=== PATIENT | female | born 1970 | race Caucasian/White ===

== ENCOUNTER → 2017-04-08 | Outpatient (CLI) | payer BC ==
--- NOTE | ~2017-04-08 | EE ---
Unit #: [id number] #: [id number] Patient: BARBARA VO [id number] [address] [place], [place] [address] [id number] O MR#: [id number] NAME: BARBARA VO : 1970 SEX: F STUDY DATE/TIME: 04/09/2017 UNIT: CEEG ROOM: STUDY DESCRIPTION: EEG Attending Physician: Breanna Matias M.D. Referring Physician: Breanna aMtias M.D. Primary Care Physician: Nahum Vazquez M.D. NEURODIAGNOSTICS REPORT EXAM EEG REASON FOR STUDY Seizures. Mettl TECHNICAL INFORMATION Routine EEG performed using the standard International 10-20 system electrode placement. Photic stimulation was performed. Hyperventilation was also performed. REPORT Throughout the entire study the best background rhythm seen is approximately 11-12 hertz. This reason is seen in both posterior head regions symmetrically and does attenuate to eye opening and closure. Hyperventilation was performed, which did not appear to evoke any abnormal buildup. Photic stimulation was also performed, which failed to reproduce any epileptiform abnormalities; however, decent photic driving response was seen. Patient does achieve some brief drowsiness during the EEG. However, no sleep was recorded. Throughout the entire study there were no electrographic seizures recorded nor were there any discreet epileptiform abnormality seen. INTERPRETATIONS Normal awake EEG and normal EEG does not rule out the possibility of seizure disorder. Clinical correlation is advised. Dictated by... Evangelista Cuenca II., M.D. GWS/luisana TD: 04/09/2017 13:18 JOB #: [id number] Unit #: [id number] #: [id number] Patient: BARBARA VO NEURODIAGNOSTICS REPORT Page 1 of 1 X NEURODIAGNOSTICS REPORT
--- NOTE | ~2017-04-08 | MR133 ---
[facility] A Service of [facility] RADIOLOGY TEXT RESULTS PATIENT: BARBARA VO LOCATION: CEEG : 70 UNIT #: [id number] AGE: [address]: BREANNA WOOD MD SEX: F ORDER DR: [id number] [facility] [address] [place], [place] [address] [id number] O MR#: [id number] Acc #: [id number] NAME: BARBARA VO : 1970 SEX: F STUDY DATE/TIME: 04/08/2017 10:38 UNIT: CEEG ROOM: STUDY DESCRIPTION: MR MRA Neck WWo Contrast Attending Physician: Breanna Wood M.D. Referring Physician: Breanna Wood M.D. Ordering Physician: Breanna Wood M.D. Primary Care Physician: Nahum Vazquez M.D. MRI CENTER REPORT This report is preliminary unless electronic signature is present. EXAM MR angiogram neck vessels with and without. HISTORY New onset seizure disorder. Epilepsy abnormal brain MRI with evidence of small and large vessel disease. COMMENT MR angiography performed of neck vessels prior to and during the intravenous administration of 18 mL of MultiHance. COMPARISON There is no prior imaging of the neck vessels. FINDINGS The patient has partially bovine origin of the left common carotid artery. There is no hemodynamically significant stenosis suspected at great vessel origins from the arch. The left vertebral artery is mildly dominant, and patent throughout the neck. The right vertebral artery is smaller, but also patent throughout the neck. By NASCET criteria, there is essentially 0% stenosis suspected at either carotid bifurcation. IMPRESSION 1. Essentially normal MR angiography neck vessels. By NASCET criteria, essentially 0% stenosis of either carotid bifurcation, and both vertebral arteries are patent. Dictated by... Rosa Peters M.D. THIS IS AN ELECTRONICALLY VERIFIED REPORT [facility] A Service of [facility] [place] RADIOLOGY TEXT RESULTS PATIENT: BARBARA VO LOCATION: CEEG : 70 UNIT #: [id number] AGE: [address]: BREANNA WOOD MD SEX: F ORDER DR: Rosa Peters M.D. at 04/10/2017 8:02 PM ART/anabel TD: 04/09/2017 18:50 JOB #: [id number] MRI CENTER REPORT Page 1 of 1 COPY
--- NOTE | ~2017-04-08 | MR17 ---
[facility] A Service of [facility] RADIOLOGY TEXT RESULTS PATIENT: BARBARA VO LOCATION: CEEG : 70 UNIT #: [id number] AGE: [address]: BREANNA WOOD MD SEX: F ORDER DR: [id number] [facility] [address] [place], [place] [address] [id number] O MR#: [id number] Acc #: [id number] NAME: BARBARA VO : 1970 SEX: F STUDY DATE/TIME: 04/08/2017 9:40 UNIT: CEEG ROOM: STUDY DESCRIPTION: MR Brain WWo Contrast Attending Physician: Breanna Wood M.D. Referring Physician: Breanna Wood M.D. Ordering Physician: Breanna Wood M.D. Primary Care Physician: Nahum Vazquez M.D. MRI CENTER REPORT This report is preliminary unless electronic signature is present. EXAM MRI of the brain with and without. HISTORY Epilepsy, first ever seizure 3 weeks ago with continuing headaches and some anteromedial left arm pain. No history of cancer. COMMENT MRI of the brain was performed prior to and following intravenous administration of 18 mL of MultiHance. There is no comparison study of the brain. There are separate MR angiogram dictations. 1.5T system utilized with a seizure protocol. There is no evidence for a recent ischemic insult on the diffusion series. There is no MRI evidence for a recent intracranial hemorrhage. There is encephalomalacia in the medial inferior left occipital lobe with an area of involvement about 3 cm x 1.7 cm axial plane and there is also encephalomalacia left parietal lobe posterolaterally, wedge-shaped about 3 x 2.5 cm. These are consistent with remote insults. Distribution would suggest prior thromboembolic disease to the posterior circulation. There are additionally smaller areas of white matter signal abnormality in the subcortical and deep white matter to a lesser extent the periventricular white matter bilaterally. There is a small focus of encephalomalacia in particular in the left posterior frontal centrum semiovale. Small chronic lacune in the medial right basal ganglia measuring about 1.1 x 0.6 cm in dimension. There is no evidence for mesial temporal sclerosis. Nothing to suggest kinney matter heterotopia. Following contrast administration, there is no pathologic intracranial enhancement. There is no intracranial mass lesion or mass effect. The appearance of the brain is abnormal, particularly for a 46-year-old female. The multiple areas of malacic change are most concerning for [facility] Service of [facility] RADIOLOGY TEXT RESULTS PATIENT: BARBARA VO LOCATION: CEEG : 70 UNIT #: [id number] AGE: [address]: BREANNA WOOD MD SEX: F ORDER DR: prior ischemic insults, both due to thromboembolic disease and small vessel disease. The left cerebral hemispheric lesions could be in part due to borderzone type ischemia. See the upcoming MR angiogram dictations and please correlate for risk factors for thromboembolic disease. Please correlate as well for any history of vasculitis or severe complicated migraine. At this time, the major arterial intracranial flow voids are maintained. The patient has a small amount of fluid or inflammatory change in the mastoid air cells, especially on the right. Please correlate for any history of substance abuse. IMPRESSION 1. No evidence for a recent ischemic insult. 2. Abnormal examination, particularly in 46-year-old female. There are multiple areas of encephalomalacia as well as areas of white matter signal abnormality and lacunar disease. Please correlate for clinical evidence of risk factors for thromboembolic disease or advanced small vessel disease. Please correlate for any history of severe complicated migraine or evidence for vasculitis or substance abuse. One of these areas of encephalomalacia could be a seizure focus in this patient. See the subsequent MR angiogram dictations. Further evaluation of this patient is recommended given the advanced disease in age group. STAT * RESULT Dictated by... Rosa Peters M.D. THIS IS AN ELECTRONICALLY VERIFIED REPORT Rosa Peters M.D. at 04/09/2017 5:47 PM ART/yanci TD: 04/09/2017 14:22 JOB #: [id number] MRI CENTER REPORT Page 1 of 1 COPY
--- NOTE | ~2017-04-08 | MR122 ---
[facility] A Service of [facility] RADIOLOGY TEXT RESULTS PATIENT: BARBARA VO LOCATION: CEEG : [birth year] UNIT #: [id number] AGE: [address]: BREANNA WOOD MD SEX: F ORDER DR: [id number] [facility] [address] [place], [place] [address] [id number] O MR#: [id number] Acc #: [id number] NAME: BARBARA VO : 1970 SEX: F STUDY DATE/TIME: 04/08/2017 10:29 UNIT: CEEG ROOM: STUDY DESCRIPTION: MR MRA Head Wo Contrast Attending Physician: Breanna Wood M.D. Referring Physician: Breanna Wood M.D. Ordering Physician: Breanna Wood M.D. Primary Care Physician: Nahum aVzquez M.D. MRI CENTER REPORT This report is preliminary unless electronic signature is present. EXAM MR angiogram head without HISTORY New onset epilepsy. Abnormal brain MRI with areas of malacia concerning for prior large and small vessel ischemic insults. COMMENT There is no intracranial vascular cutoff. There may be subtle caliber change in the ZOYA distribution but this could simply be artifactual. If there is concern for vasculitis, this diagnosis is best pursued with a conventional angiogram. No focal high-grade central stenosis is seen. There is asymmetrically diminished flow to the distal left posterior cerebral artery distribution consistent with the encephalomalacic area seen on the earlier brain MRI. No additional intracranial vascular cutoff is suspected. No aneurysm is suspected on the basis of MR angiography. No anterior communicating artery is seen. No significant posterior communicator is seen. IMPRESSION 1. There may be caliber change in the ZOYA vessels bilaterally more distally. If there is clinical concern for vasculitis, this diagnosis is best pursued with conventional angiography. 2. Diminished flow to the distal left posterior cerebral artery distribution consistent with encephalomalacia on the MRI of the brain. This should be a chronic finding. No recent appearing intracranial vascular cutoff is suspected. STAT * RESULT STS. [facility] A Service of [facility] RADIOLOGY TEXT RESULTS PATIENT: BARBARA VO LOCATION: [facility] : [birth year] UNIT #: [id number] AGE: [address]: BREANNA WOOD MD SEX: F ORDER DR: Dictated by... Rosa Peters M.D. THIS IS AN ELECTRONICALLY VERIFIED REPORT Rosa Peters M.D. at 04/09/2017 5:48 PM ART/yassine TD: 04/09/2017 14:24 JOB #: [id number] MRI CENTER REPORT Page 1 of 1 COPY
[2017-04-08 12:55] LABS: POC - CREATININE 1.22 mg/dL (0.44-1.03)
== END | disposition home or self-care (01) ==
LOC: CEEG 06:33
PROVIDERS: Psychiatry & Neurology Clinical Neurophysiology
DX: G40.209 Localization-related (focal) (partial) symptomatic epilepsy and epileptic syndromes with complex partial seizures, not intractable, without status epilepticus (principal); G93.89 Other specified disorders of brain; R94.02 Abnormal brain scan
CPT/HCPCS: 70544; 70549; 70553; 82565; 95816; A9577

== ENCOUNTER 2017-04-16 19:13 | Emergency (ER) | payer BC ==
[~2017-04-16] VITALS: Ht 167.6 cm; Wt 90.7 kg
--- NOTE | ~2017-04-16 | US140 ---
[facility] A Service of [facility] RADIOLOGY TEXT RESULTS PATIENT: BARBARA VO LOCATION: [facility] : 70 UNIT #: [id number] AGE: [address]: Petey Elizabeth MD SEX: F ORDER DR: [id number] [facility] [address] [place], [place] [address] [id number] E MR#: [id number] Acc #: [id number] NAME: BARBARA VO : 1970 SEX: F STUDY DATE/TIME: 04/16/2017 21:22 UNIT: [facility] ROOM: STUDY DESCRIPTION: UE Veins Unilat or Ltd Stdy Attending Physician: Petey Elizabeth M.D. Ordering Physician: Petey Elizabeth M.D. Primary Care Physician: Nahum Vazquez M.D. MEDICAL IMAGING REPORT This report is preliminary unless electronic signature is present EXAMINATION Left upper extremity Doppler venous ultrasound. DATE 04/16/2017 HISTORY Pain in the left antecubital fossa for 3 weeks. On baby aspirin. Previous history of transient ischemic attack. Hypertension. IV was placed 1 month ago. COMPARISON None. FINDINGS Real-time kinney-scale, color Doppler and spectral Doppler imaging was performed of the left upper extremity veins. The left internal jugular, subclavian, axillary and brachial veins demonstrate normal flow, compressibility and/or augmentation without deep venous thrombosis. Superficial venous thrombus is noted within the left basilic vein. The cephalic vein is patent. IMPRESSION 1. No left upper extremity deep venous thrombosis. 2. Superficial venous thrombus within the left basilic vein. Dictated by... Keerthi Finn M.D. THIS IS AN ELECTRONICALLY VERIFIED REPORT Keerthi Finn M.D. at 04/19/2017 8:38 AM BURKE/anabel [facility] A Service of [facility] RADIOLOGY TEXT RESULTS PATIENT: BARBARA VO LOCATION: [facility] : 70 UNIT #: [id number] AGE: [address]: Petey Elizabeth MD SEX: F ORDER DR: TD: 04/17/2017 17:47 JOB #: [id number] MEDICAL IMAGING REPORT Page 1 of 1 COPY
== END 2017-04-16 23:00 | disposition home or self-care (01) ==
LOC: CED 19:13
DX: I82.812 Embolism and thrombosis of superficial veins of left lower extremity (principal); I10 Essential (primary) hypertension; E78.5 Hyperlipidemia, unspecified
CPT/HCPCS: 93971; 99283

== ENCOUNTER → 2017-04-16 | Outpatient (CLI) | payer BC | END | disposition home or self-care (01) | LOC: CECH 09:27 | DX: I63.9 Cerebral infarction, unspecified (principal); I05.2 Rheumatic mitral stenosis with insufficiency; I36.1 Nonrheumatic tricuspid (valve) insufficiency | CPT/HCPCS: 93306 ==

== ENCOUNTER → 2017-04-16 | Outpatient (CLI) | payer BC ==
[2017-04-16 11:35] LABS: HEMATOCRIT 36.6 % (35.0-45.0); HEMOGLOBIN 12.2 gm/dL (12.0-16.0); MEAN CELL VOLUME 75.1 FL (83-96); MEAN CORPUSCULAR HEMOGLOBIN 24.9 PG (28-34); MEAN CORPUSCULAR HGB CONC 33.2 g/dL (30-36); MEAN PLATELET VOLUME 8.6 FL (6.5-11.5); RED BLOOD COUNT 4.88 X10e (3.90-5.30); RED CELL DISTRIBUTION WIDTH 14.9 % (11.0-15.5); WHITE BLOOD COUNT 5.9 X10e3 (4.0-10.5)
[2017-04-16 12:02] LABS: URINE APPEARANCE CLEAR; URINE BILIRUBIN NEG (NEG); URINE BLOOD NEG (NEG); URINE COLOR YELLOW; URINE GLUCOSE NEG (NEG); URINE KETONE NEG (NEG); URINE LEUKOCYTE ESTERASE NEG (NEG); URINE NITRATE NEG (NEG); URINE PH 5.5 (5-8); URINE PROTEIN NEG (NEG); URINE SPECIFIC GRAVITY 1.013 (1.003-1.035); URINE UROBILINOGEN 0.2 MG/DL (NEG)
[2017-04-16 12:14] LABS: ALBUMIN SERUM 3.7 g/dL (3.5-5.0); BILIRUBIN,TOTAL 0.4 mg/dL (0.2-2.0); BUN/CREATININE RATIO 23.07; CALCIUM SERUM 8.7 mg/dL (8.4-10.2); CREATININE SERUM 1.3 mg/dL (0.6-1.4); GLOM FILT RATE Estimated 49.2 mL/min (>60); POTASSIUM 4.1 mmol/L (3.5-5.1)
[2017-04-16 12:14] LABS: PARTIAL THROMBOPLASTIN TIME 36.5 SECONDS (23.5-31.3); PROTHROMBIN TIME (PATIENT) 10.5 SECONDS (10.0-11.7)
[2017-04-16 12:20] LABS: URINE SOURCE CLEAN CATCH
[2017-04-16 12:23] LABS: THYROID STIMULATING HORMONE 2.8 uIU/ml (0.34-5.60)
[2017-04-16 12:29] LABS: FREE THYROXIN (T4) 0.9 ng/dL (0.58-1.64)
[2017-04-17 22:44] LABS: PROTEIN C ACTIVITY 150 % (70-180); PROTEIN S 62 % (60-140)
[2017-04-20 05:32] LABS: CARDIOLIPIN IGG (LUPUS) 84 GPL (<=14); CARDIOLIPIN IGM (LUPUS) 22 MPL (<=12); DRVVT 1:1: MIX NOT CORRECTED (CORRECTED); DRVVT CONFIRM Positive (Negative); DRVVT MIX INTERP (LUPUS) Positive (()); HEXAGONAL PHASE CONF (LUPUS) Positive (Negative); IMM PTT LA MIX NOT CORRECTED (()); PTT MIX INTERP Has been added (()); PTT-LA 85 sec (<=40); PTT-LA SCREEN (LUPUS) 85 sec (<=40); THROMBIN TIME LUPUS 17 sec (13-19); dRVVT SCREEN (LUPUS) 86 sec (<=45)
[2017-04-21 12:57] LABS: ANA SCREEN Positive (Negative); ANA TITER COMMENT Has been added (()); MYELOPEROXIDASE AB (PNL) <1.0 AI (<1.0); NUCLEAR PATTERN (ANA) Nucleolar (()); PROTEINASE-3 AB (PNL) <1.0 AI (<1.0)
== END | disposition home or self-care (01) ==
LOC: CLAB 09:36
PROVIDERS: Internal Medicine; Psychiatry & Neurology Clinical Neurophysiology
DX: Z00.00 Encounter for general adult medical examination without abnormal findings (principal)
CPT/HCPCS: 36415; 80053; 80061; 81003; 84439; 84443; 85027; 85220; 85301; 85303; 85306; 85597; 85598; 85610; 85613; 85670; 85730; 86021; 86038; 86039; 86146; 86147; 86148

== ENCOUNTER → 2017-05-08 | Outpatient (CLI) | payer BC ==
[2017-05-08 07:40] LABS: INR 1.1; PROTHROMBIN TIME (PATIENT) 11.4 SECONDS (10.0-11.7)
== END | disposition home or self-care (01) ==
LOC: CLAB 07:01
DX: I63.9 Cerebral infarction, unspecified (principal)
CPT/HCPCS: 36415; 85610

== ENCOUNTER 2017-05-15 14:48 | Emergency (ER) | payer BC ==
--- NOTE | ~2017-05-15 | CT71 ---
[facility] A Service of [facility] RADIOLOGY TEXT RESULTS PATIENT: BARBARA VO LOCATION: [facility] : 70 UNIT #: [id number] AGE: [address]: Petey Elizabeth MD SEX: F ORDER DR: [id number] [facility] [address] [place], [place] [address] [id number] E MR#: [id number] Acc #: [id number] NAME: BARBARA VO : 1970 SEX: F STUDY DATE/TIME: 05/15/2017 17:10 UNIT: [facility] ROOM: STUDY DESCRIPTION: CT Head Wo Contrast Attending Physician: Petey Elizabeth M.D. Ordering Physician: Petey Elizabeth M.D. Primary Care Physician: Nahum Vazquez M.D. MEDICAL IMAGING REPORT This report is preliminary unless electronic signature is present EXAM Noncontrast CT head. DATE 05/15/2017 HISTORY 46-year-old female with headache, dizziness and blurred vision since this morning. Pain behind forehead. History of stroke 6 weeks ago. COMPARISON MRI brain without with contrast 04/08/2017. TECHNIQUE This CT exam was performed with one or more of the following radiation dose reduction techniques: automatic control, adjustment of mA and/or kV according to patient size, and iterative reconstruction. FINDINGS New region of hypodensity is demonstrated within the cortical and subcortical deep white matter in the right occipital region measuring 3.0 x 1.4 cm, compared to the recent MRI brain, may represent an area of acute or evolving infarct. Scattered areas of encephalomalacic change within the left parietal lobe, medial left occipital lobe, are unchanged from prior. Chronic-appearing lacunar infarct within the right basal ganglia. No mass effect or midline shift or intracranial hemorrhage is seen. Paranasal sinuses and mastoid air cells are clear. IMPRESSION 1. New right occipital region of hypodensity involving the and cortical subcortical white matter, compared to 04/08/2017 may represent subacute or evolving infarct. [facility] A Service [facility] RADIOLOGY TEXT RESULTS PATIENT: BARBARA VO LOCATION: [facility] #: [id number] : [birth year] UNIT #: [id number] AGE: [address]: Petey Elizabeth MD SEX: F ORDER DR: 2. Scattered areas of chronic encephalomalacic change are redemonstrated within the left parietal lobe, left occipital lobe, with chronic lacunar infarct in the right basal ganglia. 3. No acute intracranial hemorrhage. Dictated by... Keerthi Finn M.D. THIS IS AN ELECTRONICALLY VERIFIED REPORT Keerthi Finn M.D. at 05/17/2017 6:16 AM FAINA/anjana TD: 05/17/2017 00:17 JOB #: [id number] MEDICAL IMAGING REPORT Page 1 of 1 COPY
[2017-05-15 16:55] LABS: INR 3.7
[2017-05-15 16:57] LABS: PROTHROMBIN TIME (PATIENT) 40.8 SECONDS (10.0-11.7)
== END 2017-05-15 19:09 | disposition home or self-care (01) ==
LOC: CED 14:48
PROVIDERS: Emergency Medicine
DX: R51 Headache (principal); I10 Essential (primary) hypertension; R56.9 Unspecified convulsions; Z86.73 Personal history of transient ischemic attack (TIA), and cerebral infarction without residual deficits; Z90.01 Acquired absence of eye
CPT/HCPCS: 36415; 70450; 85610; 99284